=== PATIENT | female | born 1985 | race Caucasian/White ===

== ENCOUNTER 2017-04-14 04:15 | Inpatient (IN) | payer OTHER ==
[2017-04-14] MEDS ORDERED: CITRIC ACID/SODIUM CITRATE 30 ML UNIT-DOSE CUP PO ONE (05:00)
[2017-04-14] MEDS ORDERED: CEFAZOLIN 2 GM/D5W 2 GM/50 ML ML IVPB ONE (05:00)
[2017-04-14] MEDS ORDERED: ceFAZolin SODIUM 1 GM VIAL ONE (05:07)
--- NOTE | 2017-04-14 05:13 | HP ---
Past Medical History - Primary Care Physician PCP:: Reji Kirkland - Admission Chief Complaint: 31yo P1 @ 37.1 wks with clear LOF @ 3:20am, + ctx, no VB, +Fm History of Present Illness: 1. Twin gestation - breech/vtx on 04/01/17 Twin A - 2613gm, Twin B - 2250gm 2. GCT-147/GTT nl History Source: Patient Limitations to Obtaining History: No Limitations - Past Medical History ...: 2 ...Para: 1 ...EDC by Dates: 05/04/17 Additional OB History: x 1 Heme/Onc: Yes: Anemia - Past Surgical History Past Surgical History: Yes: None Hx Myomectomy: No Hx Transabdominal Cerclage: No - Smoking History Smoking history: Never smoked Have you smoked in the past 12 months: No - Alcohol/Substance Use Hx Alcohol Use: No - Social History History of Recent Travel: No Home Medications - Allergies Allergies/Adverse Reactions: Allergies Allergy/AdvReac Type Severity Reaction Status Date / Time No Known Allergies Allergy Verified 04/13/17 10:59 - Home Medications Home Medications: Ambulatory Orders Vitamins (Sjr) - 1 tab PO DAILY #1 tablet 08/24/14 Review of Systems - Review of Systems Constitutional: reports: No Symptoms Eyes: reports: No Symptoms HENT: reports: No Symptoms Neck: reports: No Symptoms Cardiovascular: reports: No Symptoms Respiratory: reports: No Symptoms Gastrointestinal: reports: No Symptoms Genitourinary: reports: Other (Labor pains, Leackage of fluid) Breasts: reports: No Symptoms Reported Musculoskeletal: reports: No Symptoms Integumentary: reports: No Symptoms Neurological: reports: No Symptoms Endocrine: reports: No Symptoms Hematology/Lymphatic: reports: No Symptoms Psychiatric: reports: No Symptoms Physical Exam - Maternity Constitutional: Yes: Well Nourished Eyes: Yes: WNL HENT: Yes: WNL, Atraumatic, Normocephalic Neck: Yes: WNL Cardiovascular: Yes: WNL, Regular Rate and Rhythm Lungs: Clear to auscultation Breast(s): Yes: WNL - Abdominal Exam/OB Fundal Height: 40 Number of Fetuses: Multiple (Breech/Vertex) Presentation: Twins (Breech/Vertex) Contractions: Yes Regularity: Regular Intensity: Mild/Mod Monitor Mode: External Heart Rate (range): 140 both Heart Rate Location: RUQ, RLQ Category: I Accelerations: Uniform Decelerations: None - Vaginal Exam/OB Vaginal Bleediing: No Speculum Exam: No (grossly ruptured) Dilatation (cm): 5-6cm Effacement (%): 90% Amniotic Membrane Status: Ruptured Nitrazine Test: Positive Amniotic Fluid: Yes: Clear Presentation: Transverse/Shoulder (Transverse/Vertex) Station: -3 - Physical Exam Musculoskeletal: Yes: WNL Edema: LUE: 1+, RUE: 1+ Integumentary: Yes: WNL Deep Tendon Reflex Grade: Normal +2 ...Motor Strength: WNL Psychiatric: Yes: WNL Assessment/Plan 31yo P1 @ 37wks with Breech/Vtx twins in active labor Admit to L&D status Category 1 - both babies NPO, Routine admit labs Anesthesia aware Proceed with c/section and Tubal ligation Consent signed and witnessed All risks/benefits/alternatives explained
[2017-04-14] MEDS ORDERED: morphine SULFATE/Preservative Free 0.5 MG/ML (1cc Syringe) ONE (05:15)
[2017-04-14] MEDS ORDERED: ELECTROLYTE-148 SOLN 1,000 ML IV SCH (05:15)
[2017-04-14 05:50] LABS: BASO % 0.4 % (0-2.0); HEMATOCRIT 33.7 % (32.4-45.2); HEMOGLOBIN 10.9 GM/dL (10.7-15.3); LYMPH % 28.3 % (8-40); MCH 25.4 pg (25.7-33.7); MCHC 32.3 g/dl (32.0-36.0); MEAN CELL VOLUME 78.7 fl (80-96); MEAN PLT VOLUME 10.8 fl (7.5-11.1); MONO % 8.6 % (3.8-10.2); NEUT % 61.7 % (42.8-82.8); PLATELET COUNT 201 K/MM3 (134-434); RBC 4.28 M/mm3 (3.60-5.2); WHITE BLOOD COUNT 7.9 K/mm3 (4.0-10.0)
[2017-04-14] MEDS ORDERED: OXYTOCIN 20 UNITS in 0.9% NS 40 UNIT/2,000 ML INFUS.BAG IV ONE (06:07)
[2017-04-14] MEDS ORDERED: ONDANSETRON 4 MG/2 ML VIAL IVPUSH PRN (06:08)
[2017-04-14 06:14] LABS: INR 0.9 (0.82-1.09); PROTHROMBIN TIME (PATIENT) 10.2 SEC (9.98-11.88)
[2017-04-14 06:16] LABS: ACTIVATED PTT 28.2 SECONDS (26.9-34.4)
[2017-04-14 06:21] LABS: ANION GAP 10 (8-16); BLOOD UREA NITROGEN 8 mg/dL (7-18); CALCIUM 8.7 mg/dL (8.5-10.1); CHLORIDE 106 mmol/L (98-107); CO2 23 mmol/L (21-32); CREATININE 0.6 mg/dL (0.55-1.02); GLUCOSE,RANDOM 66 mg/dL (74-106); POTASSIUM 4.3 mmol/L (3.5-5.1); SODIUM 139 mmol/L (136-145)
[2017-04-14] MEDS ORDERED: EPINEPHrine 1:10,000 (P-F SYR) 1 MG/10 ML DISP.SYRIN ONE (07:16)
[2017-04-14 07:19] VITALS: BMI 29.5
[2017-04-14] MEDS ORDERED: diphenhydrAMINE HCL 25 MG CAPSULE (FP) PO PRN (07:19)
[2017-04-14] MEDS ORDERED: IBUPROFEN 600 MG TABLET (FP) PO PRN (07:19)
[2017-04-14] MEDS ORDERED: BENZOCAINE 28 GM HEMORRHOIDAL OINTMENT PR PRN (07:19)
[2017-04-14] MEDS ORDERED: METHYLERGONOVINE MALEATE 0.2 MG/1 ML AMP IM PRN (07:19)
[2017-04-14] MEDS ORDERED: WITCH HAZEL 50% (TUCKS) 40 PAD/JAR PAD TP PRN (07:19)
[2017-04-14] MEDS ORDERED: BENZOCAINE 20% 57 GM BOTTLE TP PRN (07:19)
[2017-04-14] MEDS ORDERED: oxyCODONE HCL 5 MG TABLET PO PRN (07:19)
--- NOTE | 2017-04-14 07:19 | OP ---
Operative Note - Note: Operative Date: 04/14/17 Pre-Operative Diagnosis: 31yo P1 @ 37.1wks Br/Vtx in active labor, multiparity Operation: Primary c/section, Bilateral tubal ligation Post-Operative Diagnosis: Same as Pre-op Surgeon: Cassidy Riggs [facility] Nurse: Reji Kirkland Anesthesiologist/BULB GRADER: Gideon Ortiz Anesthesia: Spinal Specimens Removed: 1. Bilateral portions of fallopian tubes Estimated Blood Loss (mls): 700 Drains, Volume Out (mls): 600 Fluid Volume Replaced (mls): 1,700 Operative Report Dictated: Yes
[2017-04-14 07:20] LABS: ARTERIAL BLOOD GAS BASE EXCESS -0.6 meq/l (-2-2); ARTERIAL BLOOD GAS PCO2 42.7 mmHg (35-45); ARTERIAL BLOOD GAS pH 7.37 (7.35-7.45)
[2017-04-14] MEDS ORDERED: ACETAMINOPHEN 1000 MG/100 ML VIAL (NON FORMULARY) IVPB ONE (07:30)
[2017-04-14] MEDS ORDERED: OXYTOCIN 20 UNITS in 0.9% NS 20 UNIT/1,000 ML INFUS.BAG IV SCH (07:30)
--- NOTE | 2017-04-14 07:36 | PN ---
Delivery - Delivery Vaginal Delivery: No Problems Section: Primary Type of Anesthesia: Local EBL (cc): 700 Delivery, Single - Stages of Labor Date of Delivery: 04/14/17 Date Placenta Delivered: 04/14/17 Time Placenta Delivered: 06:17 Placenta: Yes: Expressed - [place] Feeding Plan Initial Plan: Elected not to breastfeed exclusively throughout hospitalization Delivery, Multiple Births - Condition of Multiple Births 1 (A) Garnett Machine Operator/Swahili Teacher Present: Yes Garnett Machine Operator: Shruthi Bradford Infant Gender: Male Weight: 5 lb 8 oz Position: SP Placenta: Yes: Expressed [place] 2 (B) Garnett Machine Operator/Swahili Teacher Present: Yes Infant Gender: Male Weight: 5 lb 9 oz Position: Left, OA Placenta: Yes: Expressed - 2 (B) Score: 9 [place] 1 (A) Score: 9 5 Minutes Score: 9 Remarks - Remarks Remarks: See op note
[2017-04-14 07:53] LABS: VENOUS PC02 49.2 mmHg (38-52); VENOUS PH 7.33 (7.32-7.42)
[2017-04-14 07:57] LABS: VENOUS PO2 16.5 mmHg (28-48)
[2017-04-14 07:58] LABS: ARTERIAL BLD GAS O2 SATURATION 34.9 % (90-98.9); ARTERIAL BLOOD GAS PO2 18.4 mmHg (80-100)
[2017-04-14] MEDS ORDERED: ONDANSETRON 4 MG/2 ML VIAL ONE (07:58)
[2017-04-14] MEDS ORDERED: D5W-LR W/ 20 UNITS OXYTOCIN 20 UNIT/1,000 ML INFUS.BAG IV SCH (08:00)
[2017-04-14 08:02] LABS: VENOUS PC02 43.9 mmHg (38-52); VENOUS PH 7.37 (7.32-7.42)
[2017-04-14 08:05] LABS: VENOUS PO2 19.9 mmHg (28-48)
[2017-04-14 08:06] LABS: ARTERIAL BLD GAS O2 SATURATION 63.3 % (90-98.9); ARTERIAL BLOOD GAS PO2 27.7 mmHg (80-100)
[2017-04-14 08:07] LABS: ARTERIAL BLOOD GAS BASE EXCESS -1.1 meq/l (-2-2); ARTERIAL BLOOD GAS PCO2 39.2 mmHg (35-45); ARTERIAL BLOOD GAS pH 7.39 (7.35-7.45)
[2017-04-14] MEDS ORDERED: IBUPROFEN 800 MG/8 ML IJ IVPB ONE (09:18)
[2017-04-14] MEDS: IBUPROFEN 800 MG/8 ML IJ IVPB PRN ×3 (09:30→20:26)
[2017-04-14] MEDS ORDERED: TUBERCULIN PPD 5 TU/0.1ML SYRINGE (IN PATIENT USE ONLY) ID ONE (10:00)
--- NOTE | 2017-04-14 11:46 | OP ---
DATE OF OPERATION: 04/14/2017 PREOPERATIVE DIAGNOSIS: A 31-year-old para 1 at 37 weeks and 1 day with breech vertex twins in active labor, multiparity. POSTOPERATIVE DIAGNOSIS: A 31-year-old para 1 at 37 weeks and 1 day with breech vertex twins in active labor, multiparity. OPERATION: Primary section and bilateral tubal ligation. SURGEON: Cassidy Riggs MD SCIENTIFIC PHOTOGRAPHER: ANESTHESIOLOGIST: Gideon Ortiz MD ANESTHESIA: Spinal. DESCRIPTION OF THE OPERATIVE PROCEDURE: After assuring informed consent, patient was brought to the operating room, where she was placed in dorsal supine position with left lateral tilt. Abdomen was prepped and draped in sterile fashion. A Pfannenstiel skin incision was made with the scalpel, carried down to the level of fascia with the Bovie cautery. Fascia was incised with Bovie cautery and extended bilaterally with Bovie cautery, dissected off the rectus muscle by grasping with Kochers and also dissecting inferiorly and superiorly with cautery. Muscle was split in the midline and dissected downward with the Bovie cautery. The peritoneum was identified and entered bluntly. Vesicouterine peritoneum was retracted with lower edge of the Tram. Vesicouterine peritoneum was identified, tented, and dissected bilaterally with Metzenbaum scissors, retracted with lower edge of the Tram. Uterine incision was made with the scalpel and extended bilaterally with bandage scissors. First infant, baby A, was delivered sacrum anterior in pedrito breech position, suctioned upon delivery. Cord clamped and cut. Infant was handed to pediatricians. Second infant, twin B, was delivered vertex ADARSH presentation, suctioned. Cord clamped and cut. was handed to pediatricians. Dr. Bradford in attendance. Twin A was 5 pounds 8 ounces. Twin B was 5 pounds 9 ounces. Apgars were 9 and 9 for each twin. Placenta was expressed without difficulty, sent to Pathology. The uterus was cleared fo clots and debris and sutured with 0 Biosyn in running locking suture. The second imbricating layer covering the first layer was also done using 0 Biosyn suture. Vesicouterine peritoneum was reapproximated. Abdomen was cleared of clots and debris, and subsequently each fallopian tube was grasped with the Franklin, identified the fimbriated end. First, each fimbriated end was truncated and tied with 0 Vicryl and subsequently the mid ampullary region of each tube was also tied, and mid portion in between 2 ties was excised. Excellent hemostasis was achieved. Two portions of each fallopian tube was sent to Pathology. Normal ovaries were identified. The peritoneum was sutured with 0 Biosyn. Muscle was reapproximated at the midline. The fascia was closed with 0 Vicryl in running locking fashion, 1 running suture. Subcutaneous tissue was closed with 2-0 chromic, and skin was closed with 4-0 Biosyn. ESTIMATED BLOOD LOSS: 700 mL. URINE OUTPUT: 600 mL. FLUIDS: Received 1700 mL of fluids. Incision was dressed. Uterus was cleared of clots and debris. COUNTS: All instrument and sponge counts were correct x2. DISPOSITION: Patient was brought to the recovery room in stable condition. Chely [id number]
[2017-04-14] MEDS: CEFAZOLIN 1 GM PUSH 1 GM/10 ML DISP.SYRIN IVPUSH SCH ×2 (12:18→20:26)
[2017-04-14 17:02] LABS: BASO % 0.3 % (0-2.0); EOS % 0.5 % (0-4.5); HEMATOCRIT 29.2 % (32.4-45.2); HEMOGLOBIN 9.4 GM/dL (10.7-15.3); LYMPH % 19.5 % (8-40); MCH 25.1 pg (25.7-33.7); MCHC 32.3 g/dl (32.0-36.0); MEAN CELL VOLUME 77.7 fl (80-96); MEAN PLT VOLUME 10.1 fl (7.5-11.1); MONO % 7.5 % (3.8-10.2); NEUT % 72.2 % (42.8-82.8); PLATELET COUNT 172 K/MM3 (134-434); RBC 3.76 M/mm3 (3.60-5.2); RDW 15.8 % (11.6-15.6); WHITE BLOOD COUNT 8.4 K/mm3 (4.0-10.0)
[2017-04-14 17:34] LABS: INR 0.94 (0.82-1.09); PROTHROMBIN TIME (PATIENT) 10.6 SEC (9.98-11.88)
[2017-04-14 17:37] LABS: ACTIVATED PTT 27.6 SECONDS (26.9-34.4)
[2017-04-14] MEDS: DEXTROSE 5%-LACTATED RINGERS 1,000 ML IV SCH ×2 (19:52→23:46)
[2017-04-14] MEDS: ACETAMINOPHEN 325 MG TABLET (FP) PO PRN (23:08)
[2017-04-15] MEDS: ACETAMINOPHEN 325 MG TABLET (FP) PO PRN ×5 (02:13→20:48)
[2017-04-15] MEDS: IBUPROFEN 600 MG TABLET (FP) PO PRN ×3 (02:14→21:24)
[2017-04-15] MEDS: oxyCODONE HCL 5 MG TABLET PO PRN ×4 (05:50→23:40)
[2017-04-15] MEDS: SIMETHICONE 80 MG TAB.CHEW (FP) PO PRN ×3 (05:50→19:45)
[2017-04-15] MEDS: DEXTROSE 5%-LACTATED RINGERS 1,000 ML IV SCH ×2 (06:20→16:52)
[2017-04-15] MEDS ORDERED: BISACODYL 10 MG SUPP.RECT PR PRN (07:19)
[2017-04-15 07:42] LABS: BASO % 0.2 % (0-2.0); EOS % 1.2 % (0-4.5); HEMATOCRIT 28.6 % (32.4-45.2); HEMOGLOBIN 9.3 GM/dL (10.7-15.3); LYMPH % 17.5 % (8-40); MCH 25.3 pg (25.7-33.7); MCHC 32.6 g/dl (32.0-36.0); MEAN CELL VOLUME 77.6 fl (80-96); MEAN PLT VOLUME 9.4 fl (7.5-11.1); MONO % 5.9 % (3.8-10.2); NEUT % 75.2 % (42.8-82.8); PLATELET COUNT 164 K/MM3 (134-434); RBC 3.69 M/mm3 (3.60-5.2); RDW 16.2 % (11.6-15.6); WHITE BLOOD COUNT 7.3 K/mm3 (4.0-10.0)
--- NOTE | 2017-04-15 08:32 | PN ---
Progress Note, Physician Chief Complaint: s/p c section under spinal anesthesia History of Present Illness: post op day one, duramorph for post op pain control - Current Medication List Current Medications: Active Medications Acetaminophen (Tylenol -) 650 mg PO Q4H PRN PRN Reason: PAIN LEVEL 4 - 6 Last Admin: 04/15/17 05:51 Dose: 650 mg Benzocaine (Americaine 20% Wendel -) 1 spray TP PRN PRN PRN Reason: Pain - Topical Benzocaine (Americaine Ointment -) 1 applic WI PRN PRN PRN Reason: Pain - Topical Bisacodyl (Dulcolax Suppository -) 10 mg WI PRN PRN PRN Reason: CONSTIPATION Diphenhydramine HCl (Benadryl Injection -) 25 mg IVPUSH Q4H PRN PRN Reason: Pruritis Diphenhydramine HCl (Benadryl -) 25 mg PO Q8H PRN PRN Reason: FOR ITCHING Dextrose/Lactated Ringer's (D5-Lr -) 1,000 mls @ 125 mls/hr IV ASDIR NATANAEL Last Admin: 04/15/17 06:20 Dose: 125 mls/hr Ibuprofen (Motrin -) 600 mg PO Q4H PRN PRN Reason: PAIN LEVEL 1 - 3 Last Admin: 04/15/17 02:14 Dose: 600 mg Methylergonovine Maleate (Methergine Injection -) 0.2 mg IM Q4H PRN PRN Reason: EXCESSIVE BLEEDING Ondansetron HCl (Zofran Injection) 4 mg IVPUSH Q4H PRN PRN Reason: NAUSEA Last Admin: 04/14/17 08:10 Dose: 4 mg Oxycodone HCl (Roxicodone -) 5 mg PO Q4H PRN PRN Reason: PAIN LEVEL 4 - 6 Stop: 04/17/17 23:59 Oxycodone HCl (Roxicodone -) 10 mg PO Q4H PRN PRN Reason: PAIN LEVEL 7 - 10 Stop: 04/17/17 23:59 Last Admin: 04/15/17 05:50 Dose: 10 mg Senna/Docusate Sodium (Pericolace -) 2 tablet PO HS PRN PRN Reason: CONSTIPATION Simethicone (Mylicon -) 80 mg PO Q4H PRN PRN Reason: GAS Last Admin: 04/15/17 05:50 Dose: 80 mg Witch Linh/Glycerin (Tucks Pads -) 1 pad TP PRN PRN PRN Reason: Pain - Topical - Objective Vital Signs: Vital Signs Temperature 98.6 F 04/15/17 08:20 Pulse Rate 70 04/15/17 08:20 Respiratory Rate 20 04/15/17 08:20 Blood Pressure 125/69 04/15/17 08:20 O2 Sat by Pulse Oximetry (%) 100 04/14/17 08:15 Constitutional: Yes: Well Nourished Cardiovascular: Yes: WNL Respiratory: Yes: WNL Gastrointestinal: Yes: WNL Neurological: Yes: WNL Labs: CBC, BMP 04/15/17 06:50 04/14/17 05:05 INR, PTT INR 0.94 (0.82-1.09) 04/14/17 16:10 Assessment/Plan No adverse reaction to anesthetic, no headache, nausea, vomiting, or residual weakness. Dept of anesthesiology will sign off care at this time.
--- NOTE | 2017-04-15 08:38 | PN ---
Post Progress Note Post Day: 1 Type of Delivery: Primary C/S Vital Signs: Vital Signs Temperature 98.6 F 04/15/17 08:20 Pulse Rate 70 04/15/17 08:20 Respiratory Rate 20 04/15/17 08:20 Blood Pressure 125/69 04/15/17 08:20 O2 Sat by Pulse Oximetry (%) 100 04/14/17 08:15 Breast Exam: Yes: Soft Uterus: Yes: Fundus Firm, Non-tender Abdomen/GI: Yes: Abdomen soft Lochia: Yes: Rubra Lochia, amount: Small Extremities: Yes: Calves non-tender Perineum: Yes: Intact Activity: Other (in bed now) - Labs Labs: CBC WBC 7.3 K/mm3 (4.0-10.0) 04/15/17 06:50 RBC 3.69 M/mm3 (3.60-5.2) 04/15/17 06:50 Hgb 9.3 GM/dL (10.7-15.3) L 04/15/17 06:50 Hct 28.6 % (32.4-45.2) L 04/15/17 06:50 MCV 77.6 fl (80-96) L 04/15/17 06:50 MCH 25.3 pg (25.7-33.7) L 04/15/17 06:50 MCHC 32.6 g/dl (32.0-36.0) 04/15/17 06:50 RDW 16.2 % (11.6-15.6) H 04/15/17 06:50 Plt Count 164 K/MM3 (134-434) 04/15/17 06:50 MPV 9.4 fl (7.5-11.1) 04/15/17 06:50 Neutrophils % 75.2 % (42.8-82.8) 04/15/17 06:50 Lymphocytes % 17.5 % (8-40) 04/15/17 06:50 Monocytes % 5.9 % (3.8-10.2) 04/15/17 06:50 Eosinophils % 1.2 % (0-4.5) D 04/15/17 06:50 Basophils % 0.2 % (0-2.0) 04/15/17 06:50 Assessment/Plan 31yo P2-3 s/p primary LT C/S, doing well stable, afebrile. Incision is not bleeding and is clean and intact care instructions reviewed. Continue routine postop care. Ambulation encouraged.
[2017-04-16] MEDS: ACETAMINOPHEN 325 MG TABLET (FP) PO PRN ×2 (01:11→21:58)
[2017-04-16] MEDS: IBUPROFEN 600 MG TABLET (FP) PO PRN ×4 (01:12→21:58)
[2017-04-16] MEDS: oxyCODONE HCL 5 MG TABLET PO PRN (07:08)
--- NOTE | 2017-04-16 08:01 | PN ---
Post Progress Note - Subjective Subjective: Patient without acute complaints. Reports tolerating oral intake without nausea or vomiting. Ambulating without dizziness. Denies fevers or chills. Pain well controlled with oral pain medication. without difficulty. Passing flatus. Post Day: 2 Type of Delivery: Repeat C/S Vital Signs: Vital Signs Temperature 98.5 F 04/15/17 20:48 Pulse Rate 86 04/15/17 20:48 Respiratory Rate 18 04/15/17 20:48 Blood Pressure 115/68 04/15/17 20:48 O2 Sat by Pulse Oximetry (%) 98 04/15/17 10:48 Breast Exam: Yes: Engorged Uterus: Yes: Fundus Firm, Fundus below umbilicus Incision: Yes: Dressing dry and intact Abdomen/GI: Yes: Abdomen soft, Tender (mild incisional), Passing flatus, Tolerating PO Lochia: Yes: Serosa Lochia, amount: Small Extremities: Yes: Calves non-tender, Edema (+1) Activity: Ambulating - Labs Labs: CBC WBC 7.3 K/mm3 (4.0-10.0) 04/15/17 06:50 RBC 3.69 M/mm3 (3.60-5.2) 04/15/17 06:50 Hgb 9.3 GM/dL (10.7-15.3) L 04/15/17 06:50 Hct 28.6 % (32.4-45.2) L 04/15/17 06:50 MCV 77.6 fl (80-96) L 04/15/17 06:50 MCH 25.3 pg (25.7-33.7) L 04/15/17 06:50 MCHC 32.6 g/dl (32.0-36.0) 04/15/17 06:50 RDW 16.2 % (11.6-15.6) H 04/15/17 06:50 Plt Count 164 K/MM3 (134-434) 04/15/17 06:50 MPV 9.4 fl (7.5-11.1) 04/15/17 06:50 Neutrophils % 75.2 % (42.8-82.8) 04/15/17 06:50 Lymphocytes % 17.5 % (8-40) 04/15/17 06:50 Monocytes % 5.9 % (3.8-10.2) 04/15/17 06:50 Eosinophils % 1.2 % (0-4.5) D 04/15/17 06:50 Basophils % 0.2 % (0-2.0) 04/15/17 06:50 Assessment/Plan 31 yo POD # 2 s/p primary CD, afebrile, vital signs stable, doing well 1. Continue routine postoperative care. 2. Encourage ambulation and incentive spirometer use 3. Continue oral pain medication 4. Anticipate discharge home postoperative day #3 or #4
[2017-04-16] MEDS: DEXTROSE 5%-LACTATED RINGERS 1,000 ML IV SCH (08:35)
[2017-04-16] MEDS: SIMETHICONE 80 MG TAB.CHEW (FP) PO PRN (21:57)
[2017-04-16] MEDS ORDERED: SENNOSIDES/DOCUSATE COMBO (SENNA PLUS) TABLET (UD) PO PRN (22:00)
[2017-04-17] MEDS: SIMETHICONE 80 MG TAB.CHEW (FP) PO PRN ×2 (06:19→14:21)
[2017-04-17] MEDS: IBUPROFEN 600 MG TABLET (FP) PO PRN ×2 (06:19→14:21)
[2017-04-17] MEDS: ACETAMINOPHEN 325 MG TABLET (FP) PO PRN ×2 (06:20→14:20)
[2017-04-17 08:18] LABS: BASO % 0.2 % (0-2.0); EOS % 2.5 % (0-4.5); HEMATOCRIT 30.3 % (32.4-45.2); MCH 25.8 pg (25.7-33.7); MEAN CELL VOLUME 78.1 fl (80-96); MEAN PLT VOLUME 8.8 fl (7.5-11.1); MONO % 5.1 % (3.8-10.2); NEUT % 70.2 % (42.8-82.8); PLATELET COUNT 227 K/MM3 (134-434); RBC 3.88 M/mm3 (3.60-5.2); RDW 16.8 % (11.6-15.6); WHITE BLOOD COUNT 6.9 K/mm3 (4.0-10.0)
--- NOTE | 2017-04-17 12:45 | PN ---
Progress Note (short form) - Note Progress Note: pod 3 . s/p c/s doing well, no c/o CBC, BMP 04/17/17 07:20 04/14/17 05:05 Last Vital Signs Temp Pulse Resp BP Pulse Ox 98.3 F 77 20 133/76 98 04/17/17 10:00 04/17/17 10:00 04/17/17 10:00 04/17/17 10:00 04/15/17 10:48 abdomen soft, no distension, no cva incision dry, clean , healing well no calf tenderness plan ambulate . plan for d/c home in am pain management
--- NOTE | 2017-04-17 14:49 | PATH ---
Surgical Pathology Report Patient Name: ELOISA CAMPA [facility]. Rec. #: [id number] /Age/Gender: 1985 (Age: 31) / F Account: [id number] Location: [facility] OBS/ARCHITECTURE DEPARTMENT CHAIR Taken: 04/14/2017 Received: 04/15/2017 Reported: 04/17/2017 Physicians: Cassidy Riggs M.D. Specimen(s) Received A: PLACENTA B: RIGHT FALLOPIAN TUBE C: LEFT FALLOPIAN TUBE D: RIGHT FALLOPIAN TUBE E: LEFT FALLOPIAN TUBE Clinical History 31 year-old female , 37.1 weeks by sonogram, twin gestation Final Diagnosis A. TWIN PLACENTA, SECTION: DICHORIONIC DIAMNIOTIC SEPARATE DISCS TWIN THIRD TRIMESTER PLACENTAS (PLACENTA A, 398 G, PLACENTA B, 356 G) WITH TRIVASCULAR UMBILICAL CORDS AND UNREMARKABLE PLACENTAL MEMBRANES. B. FALLOPIAN TUBE, RIGHT, EXCISION: FULL LUMINAL PORTION OF UNREMARKABLE FALLOPIAN TUBE. C. FALLOPIAN TUBE, LEFT, PORTION OF, EXCISION: FULL LUMINAL PORTION OF UNREMARKABLE FALLOPIAN TUBE. D. FALLOPIAN TUBE, RIGHT, EXCISION: UNREMARKABLE FALLOPIAN TUBE INCLUDING FULL LUMINAL PORTION. E. FALLOPIAN TUBE, LEFT, EXCISION: UNREMARKABLE FALLOPIAN TUBE INCLUDING FULL LUMINAL PORTION. Electronically Signed Cady Osorio M.D. Gross Description A. Received in formalin labeled "placenta A & B," are 2 separate placentas, joined by dividing membranes. The dividing membranes are pablo and opaque. There is no clamp marking the umbilical cord of arbitrarily designated placenta "A" and one clamp marking the umbilical cord of arbitrarily designated placenta "B." Placenta "A" is 398 g and measures 17.5 x 14.5 x 2.2 cm. The attached membranes are pablo, translucent with focal opacities insert marginally. The umbilical cord measures 14 cm in length and averages 1.2 cm in diameter. The cord inserts eccentrically, 3 cm to the nearest margin. No true knots or strictures are identified. Cut surface of the umbilical cord reveals 3 vessels. The surface is tran blue with moderate fibrin deposition and appropriate caliber vessels. The maternal surface is red-brown with focal defects. Sectioning reveals red-brown, spongy parenchyma. No lesions are identified. Placenta "B" is 356 g and measures 15.5 x 14.0 x 2.3 cm. The attached membranes are pablo, translucent with focal opacities insert marginally. The umbilical cord measures 12 cm in length and averages 1.0 cm in diameter. The cord inserts eccentrically, 1.5 cm to the nearest margin. No true knots or strictures are identified. Cut surface of the umbilical cord reveals 3 vessels. The surface is martinez blue with minimal fibrin deposition and appropriate caliber vessels. The maternal surface is red-brown and intact. Sectioning reveals red-brown, spongy parenchyma. No lesions are identified. Furnace Filler sections are submitted in 7 cassettes as follows: 1-placenta "A" membrane rolls and umbilical cord; 2-3-full thickness sections of placenta "A"; 4-dividing membranes; 5-placenta "B" membrane rolls and umbilical cord; 6-7-full thickness sections of placenta "B". B. Received in formalin labeled "right fallopian tube," is a 0.7 cm in length portion of fallopian tube. No fimbria are present. The outer surface is pablo-martinez and smooth. Sectioning reveals an unremarkable lumen. Furnace Filler sections are submitted in one cassette. C. Received in formalin labeled "portion of left fallopian tube," is a 0.7 cm in length portion of fallopian tube. No fimbria are present. The outer surface is pablo-martinez and smooth. Sectioning reveals an unremarkable lumen. Furnace Filler sections are submitted in one cassette. D. Received in formalin labeled "right fallopian tube," is a 2.5 cm in length fimbriated fallopian tube. The outer surface is pablo-martinez and smooth. Sectioning reveals an unremarkable lumen. Furnace Filler sections are submitted in 2 cassettes as follows: 1-fimbria; 5-ducbl-gbsnzpnw of fallopian tube. E. Received in formalin labeled "left fallopian tube," is a 2 cm in length fimbriated fallopian tube. The outer surface is pablo tran and smooth. Sectioning reveals an unremarkable lumen. Furnace Filler sections are submitted in 2 cassettes as follows: 1-fimbria; 1-mided-dyhjtkcs of fallopian tube. 04/16/201704/16/2017
[2017-04-18] MEDS: IBUPROFEN 600 MG TABLET (FP) PO PRN ×3 (03:10→10:08)
[2017-04-18] MEDS: SIMETHICONE 80 MG TAB.CHEW (FP) PO PRN ×2 (03:10→10:09)
[2017-04-18] MEDS: ACETAMINOPHEN 325 MG TABLET (FP) PO PRN ×2 (03:11→10:08)
--- NOTE | 2017-04-18 10:29 | PN ---
Post Progress Note - Subjective Subjective: No complaints Post Day: 4 Type of Delivery: Primary C/S Vital Signs: Vital Signs Temperature 98.5 F 04/17/17 21:00 Pulse Rate 82 04/17/17 21:00 Respiratory Rate 20 04/17/17 21:00 Blood Pressure 126/70 04/17/17 21:00 O2 Sat by Pulse Oximetry (%) 98 04/15/17 10:48 Uterus: Yes: Fundus Firm, Fundus below umbilicus Incision: Yes: Sutures intact Abdomen/GI: Yes: Abdomen soft, Tolerating PO Lochia: Yes: Rubra Lochia, amount: Small Extremities: Yes: Calves non-tender, Edema (trace) Perineum: Yes: Intact Activity: Ambulating - Labs Labs: CBC WBC 6.9 K/mm3 (4.0-10.0) 04/17/17 07:20 RBC 3.88 M/mm3 (3.60-5.2) 04/17/17 07:20 Hgb 10.0 GM/dL (10.7-15.3) L 04/17/17 07:20 Hct 30.3 % (32.4-45.2) L 04/17/17 07:20 MCV 78.1 fl (80-96) L 04/17/17 07:20 MCH 25.8 pg (25.7-33.7) 04/17/17 07:20 MCHC 33.0 g/dl (32.0-36.0) 04/17/17 07:20 RDW 16.8 % (11.6-15.6) H 04/17/17 07:20 Plt Count 227 K/MM3 (134-434) D 04/17/17 07:20 MPV 8.8 fl (7.5-11.1) 04/17/17 07:20 Neutrophils % 70.2 % (42.8-82.8) 04/17/17 07:20 Lymphocytes % 22.0 % (8-40) D 04/17/17 07:20 Monocytes % 5.1 % (3.8-10.2) 04/17/17 07:20 Eosinophils % 2.5 % (0-4.5) D 04/17/17 07:20 Basophils % 0.2 % (0-2.0) 04/17/17 07:20 Assessment/Plan 31yo P2-3 s/p primary LT C/S, doing well stable, afebrile. Incision is clean and intact care instructions reviewed. Continue routine postop care. Ambulation encouraged. Discharge instructions reviewed.
--- NOTE | 2017-04-18 10:33 | DS ---
Physical Exam-CUSTODIAL WORKER Vital Signs: Vital Signs Temperature 98.5 F 04/17/17 21:00 Pulse Rate 82 04/17/17 21:00 Respiratory Rate 20 04/17/17 21:00 Blood Pressure 126/70 04/17/17 21:00 O2 Sat by Pulse Oximetry (%) 98 04/15/17 10:48 Constitutional: Yes: Well Nourished, No Distress, Calm Eyes: Yes: WNL, Conjunctiva Clear HENT: Yes: WNL, Atraumatic, Normocephalic Neck: Yes: WNL, Supple, Trachea Midline Cardiovascular: Yes: WNL, Regular Rate and Rhythm Respiratory: Yes: WNL, Regular, CTA Bilaterally Gastrointestinal: Yes: WNL, Normal Bowel Sounds, Soft Renal/: Yes: WNL External Genitalia: Yes: Normal Internal Exam Deferred: Yes ....Post : Yes: Uterus firm, Uterus non-tender, Slight lochia rubra Breast(s): Yes: WNL Musculoskeletal: Yes: WNL Extremities: Yes: WNL Integumentary: Yes: WNL Wound/Incision: Yes: Clean/Dry, Well Approximated, Sutures Intact Neurological: Yes: WNL, Alert, Oriented ...Motor Strength: WNL Psychiatric: Yes: WNL, Alert, Oriented Labs: CBC, BMP 04/17/17 07:20 04/14/17 05:05 Delivery - Delivery Vaginal Delivery: No Problems Section: Primary Type of Anesthesia: Local Episiotomy/Laceration: None EBL (cc): 700 Delivery, Single - Stages of Labor Date of Delivery: 04/14/17 Time Placenta Delivered: 06:17 Placenta: Yes: Expressed - Feeding Plan Initial Plan: Elected not to breastfeed exclusively throughout hospitalization Delivery, Multiple Births - Stages of Labor First Stage Date: 04/14/17 Time: 03:30 Delivery Baby "A" Date: 04/14/17 Time: 06:12 Placenta/Membranes "A" Date: 04/14/17 Time: 06:17 Delivery Baby "B" Date: 04/14/17 Time: 06:14 Placenta/Membranes "B" Date: 04/14/17 Time: 06:17 - Condition of Multiple Births [place] 1 (A) Fabric Finisher/Maintenance Machine Repairer Present: Yes Fabric Finisher: Shruthi Bradford Gender: Male Weight: 2.495 kg Position: SP Total Hours ROM (HRS/MINS): 2 hours 57 minutes 2 (B) Fabric Finisher/Maintenance Machine Repairer Present: Yes Fabric Finisher: Shruthi Bradford Infant Gender: Male Weight: 2.523 kg Position: Left, OA Total Hours ROM (HRS/MINS): 2 hours 57 minutes - [place] 2 (B) 5 Minutes Score: 9 1 (A) Score: 9 5 Minutes Score: 9 [place] 2 (B) Score: 9 Discharge Summary Reason For Visit: LABOR ADMIT Labor at term, twin gestation Procedures: Principal: Primary LT C/S Hospital Course: Normal recovery and course Condition: Good - Instructions Diet, Activity, Other Instructions: regular diet , follow up office 1 week Referrals: Reji Kirkland MD [Staff Physician] - Disposition: HOME - Home Medications Comprehensive Discharge Medication List: Ambulatory Orders RX: Vitamins (Sjr) - 1 tab PO DAILY #1 tablet 08/24/14 Ibuprofen [Motrin -] 600 mg PO QID #28 tablet 04/16/17
[2017-04-18 11:37] VITALS: BP 124/84; PULSE 94; TEMP 98.2
== END 2017-04-18 15:00 | disposition home or self-care (01) | DRG 766 ==
LOC: JLDR 04:15 → J3W 10:20
PROVIDERS: ADMIT Obstetrics & Gynecology; ATTEND Obstetrics & Gynecology
PROC: 10D00Z1 Extraction of Products of Conception, Low, Open Approach (ICD-10-PCS; principal; 2017-04-14)
PROC: 0UL70CZ Occlusion of Bilateral Fallopian Tubes with Extraluminal Device, Open Approach (ICD-10-PCS; 2017-04-14)
DX: O30.043 Twin pregnancy, dichorionic/diamniotic, third trimester (principal); O32.1XX1 Maternal care for breech presentation, fetus 1; Z3A.37 37 weeks gestation of pregnancy; Z37.2 Twins, both liveborn; Z30.2 Encounter for sterilization
CPT/HCPCS: 36415; 36600; 80048; 82803; 85025; 85610; 85730; 86593; 86850; 86900; 86901; 88302-TC; 88307-TC